=== PATIENT | male | born 1965 | race Caucasian/White ===

== ENCOUNTER 2021-01-10 17:15 | Emergency (ER) | payer OTHER ==
[~2021-01-10 17:15] MED LIST: ECOTRIN81 MG PO; LASIX40 MG PO; LIPITOR TAB 2020 MG PO; NORCO 5-325 TA1 EACH PO; PRINIVIL5 MG PO; TOPROL XL25 MG PO; ZOFRAN ODT 4 MG4 MG SL; ZOFRAN4 MG PO
[2021-01-10 17:51] LABS: HEMOGLOBIN 13.8 gm/dl (14.0-17.5); RED BLOOD COUNT 4.63 M/UL (4.20-5.50)
[2021-01-10 18:23] LABS: BUN/CREATININE RATIO 29 (0-10)
== END 2021-01-10 19:10 | disposition left against medical advice (07) ==
LOC: ER1 17:15
PROVIDERS: Family Medicine
DX: R07.9 Chest pain, unspecified (principal); I42.9 Cardiomyopathy, unspecified; Z79.82 Long term (current) use of aspirin; I10 Essential (primary) hypertension; Z79.899 Other long term (current) drug therapy; F17.210 Nicotine dependence, cigarettes, uncomplicated
CPT/HCPCS: 71045; 80053; 82550; 82553; 83874; 84484; 85025; 85610; 93005; 99285

== ENCOUNTER 2022-01-21 18:25 | Emergency (ER) | payer MEDICARE, OTHER ==
[2022-01-21 19:27] LABS: HEMOGLOBIN 13.3 gm/dl (14.0-17.5); RED BLOOD COUNT 4.57 M/UL (4.20-5.50); WHITE BLOOD COUNT 8.4 K/UL (4.5-11.0)
[2022-01-21 19:46] LABS: BUN/CREATININE RATIO 19 (0-10)
== END 2022-01-21 22:10 | disposition home or self-care (01) ==
LOC: ER1 18:25
PROVIDERS: Emergency Medicine
DX: U07.1 COVID-19 (principal); I11.0 Hypertensive heart disease with heart failure; I50.9 Heart failure, unspecified
CPT/HCPCS: 0240U; 71045; 80053; 83605; 83690; 83735; 84100; 85025; 85610; 85730; 87040; 96374; 96375; 99284; J2270; J2405; Q9967

== ENCOUNTER 2022-05-08 17:36 | Inpatient (IN) | payer MEDICARE, OTHER ==
[~2022-05-08] VITALS: Ht 167.6 cm; Wt 83.0 kg
[2022-05-08 18:30] LABS: RED BLOOD COUNT 4.72 M/UL (4.20-5.50); WHITE BLOOD COUNT 9.2 K/UL (4.5-11.0)
[2022-05-08 18:55] LABS: BUN/CREATININE RATIO 22 (0-10)
[2022-05-09 02:12] LABS: HEMOGLOBIN 13.7 gm/dl (14.0-17.5); RED BLOOD COUNT 4.67 M/UL (4.20-5.50); WHITE BLOOD COUNT 9.9 K/UL (4.5-11.0)
[2022-05-09 02:29] LABS: BUN/CREATININE RATIO 20 (0-10)
--- NOTE | 2022-05-09 06:57 | NUR ---
contacted provider to notify him of patient nauseous, hr 123 and bp 133/104. no new orders at this time
[2022-05-09] MEDS ORDERED: FUROSEMIDE20 MG PO (10:29)
[2022-05-09] MEDS ORDERED: METOPROLOL TART25 MG PO (11:56)
[2022-05-11] MEDS ORDERED: HYDROCODON-ACE1 EAC4 PO (19:02)
[2022-05-11] MEDS ORDERED: LEVOFLOXACIN500 MG PO (19:02)
[2022-05-11] MEDS ORDERED: CLEOCIN HCL300 MG PO (19:02)
[2022-05-12 02:41] LABS: HEMOGLOBIN 12.7 gm/dl (14.0-17.5); RED BLOOD COUNT 4.36 M/UL (4.20-5.50); WHITE BLOOD COUNT 8.3 K/UL (4.5-11.0)
[2022-05-12 03:23] LABS: BUN/CREATININE RATIO 24 (0-10)
[2022-05-12] MEDS ORDERED: ELIQUIS 5 MG TAB5 MG PO (13:30)
[2022-05-12] MEDS ORDERED: NITROGLYCERIN0.4 MG SL (13:30)
[2022-05-12] MEDS ORDERED: ELIQUIS5 MG PO (13:30)
[2022-05-12] MEDS ORDERED: METOPROLOL SUCC50 MG PO (13:30)
[2022-05-12] MEDS ORDERED: FUROSEMIDE20 MG PO (13:30)
--- NOTE | 2022-05-12 13:43 | NUR ---
PT O2 SAT 87% on room air.
== END 2022-05-12 17:30 | disposition home or self-care (01) | DRG 222 ==
LOC: ER1 17:36 → PROG CARE 21:01 → CDU 21:01 → M/S 21:01 → PROG CARE 05-10 15:15
PROVIDERS: Internal Medicine; Nurse Practitioner; ADMIT Internal Medicine
PROC: B24BZZZ Ultrasonography of Heart with Aorta (ICD-10-PCS; principal; 2022-05-09)
PROC: 4A023N7 Measurement of Cardiac Sampling and Pressure, Left Heart, Percutaneous Approach (ICD-10-PCS; 2022-05-10)
PROC: B2111ZZ Fluoroscopy of Multiple Coronary Arteries using Low Osmolar Contrast (ICD-10-PCS; 2022-05-10)
PROC: 02HK3KZ Insertion of Defibrillator Lead into Right Ventricle, Percutaneous Approach (ICD-10-PCS; 2022-05-11)
PROC: 02H63KZ Insertion of Defibrillator Lead into Right Atrium, Percutaneous Approach (ICD-10-PCS; 2022-05-11)
PROC: 0JH609Z Insertion of Cardiac Resynchronization Defibrillator Pulse Generator into Chest Subcutaneous Tissue and Fascia, Open Approach (ICD-10-PCS; 2022-05-11)
PROC: 02HL3KZ Insertion of Defibrillator Lead into Left Ventricle, Percutaneous Approach (ICD-10-PCS; 2022-05-11)
DX: I11.0 Hypertensive heart disease with heart failure (principal); I26.99 Other pulmonary embolism without acute cor pulmonale; I50.23 Acute on chronic systolic (congestive) heart failure; J96.01 Acute respiratory failure with hypoxia; R91.8 Other nonspecific abnormal finding of lung field; R94.5 Abnormal results of liver function studies; E78.5 Hyperlipidemia, unspecified; I42.0 Dilated cardiomyopathy; Z96.652 Presence of left artificial knee joint; I44.7 Left bundle-branch block, unspecified; E80.6 Other disorders of bilirubin metabolism; R74.01 Elevation of levels of liver transaminase levels; Z20.822 Contact with and (suspected) exposure to COVID-19; Z86.73 Personal history of transient ischemic attack (TIA), and cerebral infarction without residual deficits; Z82.49 Family history of ischemic heart disease and other diseases of the circulatory system; Z86.16 Personal history of COVID-19; Z79.82 Long term (current) use of aspirin; Z79.899 Other long term (current) drug therapy; Z86.718 Personal history of other venous thrombosis and embolism
CPT/HCPCS: ECHO; 33225; 33249; 71045; 80053; 80076; 80307; 81001; 82550; 82553; 83605; 83735; 83880; 84439; 84443; 84484; 85025; 85027; 85379; 86140; 87040; 93005; 93306; 93641; 93970; 94760; 96372; 96374; 99152; 99153; 99285; C1769; C1777; C1882; C1894; C1898; C1900; J1644; J1650; J1940; J2250; J2270; J2405; J3010; J3370; J7040; J7050; J7070; Q9965; Q9967